=== PATIENT | male | born 1955 | race Caucasian/White ===

== ENCOUNTER 2020-06-24 11:07 | Inpatient (IN) | payer MEDICARE, OTHER ==
[2020-06-24] VITALS (18 sets, daily range): BP systolic 107–139; BP diastolic 81–118
[~2020-06-24] VITALS: Ht 182.9 cm; Wt 103.4 kg
[2020-06-24 12:06] LABS: BASOPHILS # (AUTO) 0.1 (0.0-0.1); BASOPHILS % 0.5 % (0.0-1.0); EOSINOPHILS % 0.1 % (0.0-6.0); HEMATOCRIT 41.4 % (38.2-49.6); HEMOGLOBIN 14.2 g/dL (14.0-18.0); LYMPHOCYTES # (AUTO) 1.4 (1.0-3.2); LYMPHOCYTES % 14.3 % (18.0-39.1); MEAN CORPUSCULAR HEMOGLOBIN 30.8 pg (28-32); MEAN CORPUSCULAR HGB CONC 34.3 g/dL (31-35); MEAN CORPUSCULAR VOLUME 89.8 fL (81-99); MONOCYTES # (AUTO) 0.6 (0.2-0.8); MONOCYTES % 5.7 % (4.4-11.3); NEUTROPHILS # (AUTO) 7.8 (2.1-6.9); NEUTROPHILS % 78.9 % (38.7-80.0); PLATELET COUNT 250 x10e3/uL (140-360); RED BLOOD COUNT 4.61 x10e6/uL (4.3-5.7); RED CELL DISTRIBUTION WIDTH 13.5 % (11.7-14.4)
[2020-06-24 12:23] LABS: ALANINE AMINOTRANSFERASE 16 IU/L (0-55); ALBUMIN 4.7 g/dL (3.5-5.0); ALBUMIN/GLOBULIN RATIO 1.7 (0.8-2.0); ALKALINE PHOSPHATASE 38 IU/L (40-150); ANION GAP 20.6 mmol/L (8-16); BLOOD UREA NITROGEN 58 mg/dL (7-26); BUN/CREATININE RATIO 49 (6-25); CALCIUM 10.1 mg/dL (8.4-10.2); CARBON DIOXIDE 17 mmol/L (22-29); CHLORIDE 108 mmol/L (98-107); CREATININE, SERUM 1.18 mg/dL (0.72-1.25); EST GLOMERULAR FILTRATION RATE > 60 ML/MIN (60-); GLUCOSE 137 mg/dL (74-118); POTASSIUM 4.6 mmol/L (3.5-5.1); SODIUM 141 mmol/L (136-145)
[2020-06-24] MEDS ORDERED: DILTIAZEM HCL 5 MG/ML 5 ML VIAL IV STA ×2 (12:44→13:11)
--- NOTE | 2020-06-24 12:45 | Emergency Department Note ---
History of Present Illnes History of Present Illness Chief Complaint: Respiratory History of Present Illness This is a 64 year old male arrives to the ED with complaints of shortness of breath and tachycardia. Patient states he feels like he can't speak full sentences or catch his breath and his heart is pounding out of his chest. Patient admits to history of A. fib with patient . Chief Complaint Comment X 2 DAYS SHORTNESS OF BREATH. "I FEEL LIKE I NEED OXYGEN". O2SAT 100%., COMPLETING SENTENCES WITHOUT DIFFICULTY. POOR APPETITE. HAVING BLACK DIARRHEA X 3 EPISODES. DENIES ANY N/V. ALSO DESCRIBES EPISODES OF A HOANG OF HEAT OVER UPPER BODY Historian: Patient Arrival Mode: Car Additional Treatment ETHYL BLENDER: NONE Executive Legal Secretary Required: No Onset (how long ago): day(s) Severity: mild Onset quality: gradual Duration (how long): day(s) Timing of current episode: constant Progression: worsening Past Medical/Family History Physician Review I have reviewed the patient's past medical and family history. Any updates have been documented here. Past Medical History Recent Fever: No Clinical Suspicion of Infectio: No New/Unexplained Change in Ment: No Past Medical History: None Past Surgical History: None Social History Physically hurt or threatened: No Review of Systems Review of Systems Constitutional: Reports no symptoms EENTM: Reports no symptoms Cardiovascular: Reports as per HPI, Reports palpitations Respiratory: Reports no symptoms Gastrointestinal: Reports no symptoms Genitourinary: Reports no symptoms Musculoskeletal: Reports no symptoms Integumentary: Reports no symptoms Neurological: Reports no symptoms Psychological: Reports no symptoms Endocrine: Reports no symptoms Hematological/Lymphatic: Reports no symptoms Physical Exam Related Data Allergies: Coded Allergies: No Known Allergies (Unverified , 06/24/20) Triage Vital Signs Vital Signs Date Time Temp Pulse Resp B/P (MAP) Pulse Ox O2 Delivery O2 Flow Rate FiO2 06/24/20 11:30 98.4 110 20 102/74 Vital signs reviewed: Yes Physical Exam CONSTITUTIONAL Constitutional: Present well-developed, Present well-nourished HENT HENT: Present normocephalic, Present atraumatic, Present oropharynx clear/moist, Present nose normal HENT L/R: Present left ext ear normal, Present right ext ear normal EYES Eyes: Reports PERRL, Reports conjunctivae normal NECK Neck: Present ROM normal PULMONARY Pulmonary: Present effort normal, Present breath sounds normal CARDIOVASCULAR Cardiovascular: Present irregular rhythm, Present capillary refill normal, Present tachycardia; Absent heart sounds normal, Absent normal rate GASTROINTESTINAL Abdominal: Present soft, Present nontender, Present bowel sounds normal GENITOURINARY Genitourinary: Present exam deferred SKIN Skin: Present warm, Present dry MUSCULOSKELETAL Musculoskeletal: Present ROM normal NEUROLOGICAL Neurological: Present alert, Present oriented x 3, Present no gross motor or sensory deficits PSYCHOLOGICAL Psychological: Present mood/affect normal, Present judgement normal Results Laboratory Result Diagram: 06/24/20 1156 06/24/20 1156 Laboratory Laboratory Tests Test 06/24/20 11:56 White Blood Count 9.82 x10e3/uL (4.8-10.8) Red Blood Count 4.61 x10e6/uL (4.3-5.7) Hemoglobin 14.2 g/dL (14.0-18.0) Hematocrit 41.4 % (38.2-49.6) Mean Corpuscular Volume 89.8 fL (81-99) Mean Corpuscular Hemoglobin 30.8 pg (28-32) Mean Corpuscular Hemoglobin Concent 34.3 g/dL (31-35) Red Cell Distribution Width 13.5 % (11.7-14.4) Platelet Count 250 x10e3/uL (140-360) Neutrophils (%) (Auto) 78.9 % (38.7-80.0) Lymphocytes (%) (Auto) 14.3 % (18.0-39.1) Monocytes (%) (Auto) 5.7 % (4.4-11.3) Eosinophils (%) (Auto) 0.1 % (0.0-6.0) Basophils (%) (Auto) 0.5 % (0.0-1.0) Neutrophils # (Auto) 7.8 (2.1-6.9) Lymphocytes # (Auto) 1.4 (1.0-3.2) Monocytes # (Auto) 0.6 (0.2-0.8) Eosinophils # (Auto) 0.0 (0.0-0.4) Basophils # (Auto) 0.1 (0.0-0.1) Absolute Immature Granulocyte (auto 0.05 x10e3/uL (0-0.1) Sodium Level 141 mmol/L (136-145) Potassium Level 4.6 mmol/L (3.5-5.1) Chloride Level 108 mmol/L (98-107) Carbon Dioxide Level 17 mmol/L (22-29) Anion Gap 20.6 mmol/L (8-16) Blood Urea Nitrogen 58 mg/dL (7-26) Creatinine 1.18 mg/dL (0.72-1.25) Estimat Glomerular Filtration Rate > 60 ML/MIN (60-) BUN/Creatinine Ratio 49 (6-25) Glucose Level 137 mg/dL (74-118) Calcium Level 10.1 mg/dL (8.4-10.2) Total Bilirubin 0.4 mg/dL (0.2-1.2) Aspartate Amino Transf (AST/SGOT) 17 IU/L (5-34) Alanine Aminotransferase (ALT/SGPT) 16 IU/L (0-55) Alkaline Phosphatase 38 IU/L (40-150) Total Protein 7.4 g/dL (6.5-8.1) Albumin 4.7 g/dL (3.5-5.0) Globulin 2.7 g/dL (2.3-3.5) Albumin/Globulin Ratio 1.7 (0.8-2.0) Lab results reviewed: Yes Imaging Imaging results reviewed: Yes Procedures 12 Lead ECG Interpretation ECG Interpretation : ECG: ECG 1 Prior ECG tracings: reviewed Rhythm: atrial fibrillation Ectopy: PVC's Rate: tachycardia QRS axis: left ST segments normal: Yes T waves normal: Yes Clinical Impression: abnormal ECG Critical Care Time Total Critical Care Time (min): 65 Critical care time exclusive o: separately billable procedures Critcal care necessary due to: cardiac failure, circulatory failure Assessment & Plan Medical Decision Making MDM 64-year-old male arrives to the ED with elevated heart rate. Patient with a history of atrial fibrillation, however, on no medications. In the ER patient noted to be in A. fib with rapid ventricular response. Patient given Cardizem pushes with minimal improvement noted, however, patient noted my hypotensive and required amiodarone drip. Cardizem drip added for b doni heart rate controlled. He should admitted to the ICU for closer monitoring. Dr. Vicente consulted At Dr. Palomares's request Assessment & Plan Final Impression: (1) Atrial fibrillation with rapid ventricular response Depart Disposition: ADMITTED Last Vital Signs Date Time Temp Pulse Resp B/P (MAP) Pulse Ox O2 Delivery O2 Flow Rate FiO2 06/24/20 11:30 98.4 110 20 102/74 NOAH ROBLERO DO Jun 24, 2020 12:45
--- NOTE | 2020-06-24 12:48 | Diagnostic Imaging Report ---
EXAMINATION: CHEST SINGLE (PORTABLE) INDICATION: Shortness of breath COMPARISON: None FINDINGS: LINES/TUBES:None LUNGS:The lungs are well-inflated. No focal consolidation or pulmonary edema. PLEURA:No pleural effusion or pneumothorax. MEDIASTINUM:The cardiomediastinal silhouette appears normal in size and shape. BONES/SOFT TISSUES:No acute osseous injury. ABDOMEN:No free air under the diaphragm. IMPRESSION: No focal pneumonia or pulmonary edema. Signed by: Tyrese Martinez MD on 06/24/2020 12:45 PM
[2020-06-24] MEDS ORDERED: AMIODARONE HCL 900 MG in DEXTROSE 5% 500ML 500 ML IV STA (13:40)
[2020-06-24] MEDS ORDERED: AMIODARONE HCL 150MG 100 ML IV STA (13:40)
[2020-06-24] MEDS ORDERED: AMIODARONE HCL 360MG 200 ML IV SCH ×2 (13:45→18:00)
[2020-06-24] MEDS ORDERED: ASPIRIN 81 MG CHEW TAB PO ONE (13:45)
[2020-06-24] MEDS ORDERED: NICARDIPINE 20MG/200ML PREMIX 200 ML IV STA (13:49)
[2020-06-24] MEDS ORDERED: AMIODARONE HCL 900 MG in DEXTROSE 5 % 500ML BOTTLE 500 ML IV SCH (14:00)
[2020-06-24] MEDS ORDERED: AMIODARONE HCL 150 MG in DEXTROSE 5% 100ML 100 ML IV SCH (14:00)
[2020-06-24 14:31] LABS: CREATINE KINASE MB 1.4 ng/mL (0-5.0)
[2020-06-24] MEDS: DILTIAZEM HCL 60 MG TAB PO SCH (18:11)
[2020-06-24] MEDS ORDERED: DILTIAZEM HCL 125 ML IV SCH (18:15)
--- NOTE | 2020-06-24 18:39 | NUR ---
1525: Patient transferred from ED, received from [facility]. Pt with reddened face, complaints of shortness of breath. Pt arrived with Amiodarone gtt at 1mg/min and Nicardipine at 2.5mg/hr y'd into R AC 20g PIV. Pt ambulated to bed from stretcher without complaints. Belongings placed bedside. 1530: Nicardipine gtt turned off. SBP <130. 1715: Admission history/physical/interventions done, pt denies family and personal history of afib or heart problems. Yes hyperlipidemia, takes atorvastatin at home. Orders reviewed. Attempted call to [facility] I[facility] in ED regarding order for nicardipine, no return call received. Bridgette, energy audit advisor notified about nicardipine gtt. Bridgette contacted the Dr. Cardenas for order clarification. 1745: Diltiazem gtt ordered. Pt HR >110, is reporting shortness of breath, "feeling hot" and generally unwell. Dr. Vicente consulted and spoken to on the telephone, ordered received.
[2020-06-24 19:41] LABS: CREATINE KINASE MB 1.4 ng/mL (0-5.0)
[2020-06-25] VITALS (16 sets, daily range): BP systolic 103–156; BP diastolic 61–101
[2020-06-25] MEDS ORDERED: DILTIAZEM HCL IV 5MG/ML 25 ML VIAL ONE (00:39)
[2020-06-25] MEDS ORDERED: SODIUM CHLORIDE 0.9% 100 ML ONE (00:40)
[2020-06-25] MEDS: DILTIAZEM HCL 60 MG TAB PO SCH ×2 (01:07→05:50)
[2020-06-25 04:43] LABS: BASOPHILS # (AUTO) 0.1 (0.0-0.1); BASOPHILS % 0.4 % (0.0-1.0); EOSINOPHILS % 0.1 % (0.0-6.0); HEMATOCRIT 33.7 % (38.2-49.6); HEMOGLOBIN 11.6 g/dL (14.0-18.0); LYMPHOCYTES # (AUTO) 1.8 (1.0-3.2); LYMPHOCYTES % 10.9 % (18.0-39.1); MEAN CORPUSCULAR HEMOGLOBIN 30.4 pg (28-32); MEAN CORPUSCULAR HGB CONC 34.4 g/dL (31-35); MEAN CORPUSCULAR VOLUME 88.2 fL (81-99); MONOCYTES # (AUTO) 1.3 (0.2-0.8); NEUTROPHILS # (AUTO) 13.2 (2.1-6.9); NEUTROPHILS % 80.1 % (38.7-80.0); PLATELET COUNT 205 x10e3/uL (140-360); RED BLOOD COUNT 3.82 x10e6/uL (4.3-5.7); RED CELL DISTRIBUTION WIDTH 13.7 % (11.7-14.4)
[2020-06-25 05:04] LABS: ALBUMIN 4.2 g/dL (3.5-5.0); ALBUMIN/GLOBULIN RATIO 1.8 (0.8-2.0); ANION GAP 22.8 mmol/L (8-16); CALCIUM 9.2 mg/dL (8.4-10.2); CREATININE, SERUM 1.56 mg/dL (0.72-1.25); POTASSIUM 3.8 mmol/L (3.5-5.1)
[2020-06-25 05:27] LABS: CREATINE KINASE MB 1.9 ng/mL (0-5.0)
[2020-06-25] MEDS ORDERED: METOPROLOL TARTRATE 50 MG TAB PO SCH (08:00)
--- NOTE | 2020-06-25 09:20 | Consultation ---
DATE OF CONSULTATION: 06/25/2020 REASON FOR CONSULTATION: Atrial fibrillation. CHIEF COMPLAINT: Palpitations and shortness of breath. HISTORY OF PRESENT ILLNESS: This is a 64-year-old male with history of atrial fibrillation and hyperlipidemia. The patient presents to [facility] ER with complaints of palpitation and shortness of breath for the past 4 days. However, in the ER, was noted in atrial fibrillation with RVR, was given Cardizem IV and Cardiology was consulted to evaluate the patient. The patient is seen in the ICU. Currently, he is in sinus rhythm on telemetry, on amiodarone drip, Cardizem drip has been weaned off. The patient reports for the past 4 days or so, has palpitations, heart fluttering with shortness of breath. However, prior to coming in, symptoms were worse, so therefore came into the ER for further evaluation. Of note, the patient reports that he was told he had irregular heartbeat over a year ago, however, has not been on any anticoagulation or rhythm/rate control therapy. The patient denies any chest pains or shortness of breath at this time and he feels at baseline. However, the patient does report he noticed black stools for the past 2 to 3 days and also has been experiencing hematuria for the past 2 days. Does report has had a headache for the past several months and has been taking BC powder 6 times a day for the past several months. PAST MEDICAL HISTORY: Atrial fibrillation and hyperlipidemia. SURGICAL HISTORY: The patient denies any surgeries. SOCIAL HISTORY: He is retired. He is . He denies any tobacco use. Social alcohol use. FAMILY HISTORY: Mother is alive at age 87, reported as healthy. Father is at age 70 post ATV accident. HOME MEDICATIONS: Include statin therapy, however, the patient is unknownm which medication he takes. ALLERGIES: NO KNOWN ALLERGIES. REVIEW OF SYSTEMS: GENERAL: Denies any weight changes, fatigue, weakness, fevers, chills, or night sweats. SKIN: No rashes or bruises. HEENT: Denies any nausea, vomiting, vision change, blurred vision, double vision, epistaxis, sore throat, earache, hoarseness, or stiff neck. CARDIAC: Positive for palpitations and dyspnea on exertion. Denies orthopnea, PND, or lower extremity edema. RESPIRATORY: Positive for shortness of breath. Denies any hemoptysis, any coughing, or wheezing. GI: Reports good appetite. Denies any nausea, vomiting, diarrhea, or constipation, however, positive for black tarry stools for past several days. URINARY: Positive for hematuria for the past 2 to 3 days. Positive for frequency and urgency. Denies any dysuria. VASCULAR: Denies any lower extremity edema or claudication. MUSCULOSKELETAL: Denies any muscle weakness. Positive for joint pains or back pain. NEUROLOGIC: Denies any numbness, tingling, tremors, weakness, or paralysis. HEMATOLOGY: No easy bruising or anemia. ENDOCRINE: Denies any heat or cold intolerance, polyuria, polydipsia, or polyphagia. PHYSICAL EXAMINATION: VITAL SIGNS: Height 72 inches, weight 228 pounds. Temperature 98.6, pulse 90, respiratory rate 23, blood pressure 126/61, and pulse ox 100% on room air. GENERAL: Appears stated age, reliable informant, well nourished individual, in no acute distress. SKIN: No rashes or bruises noted. HEENT: Normocephalic. Pupils are equal and reactive. Extraocular movements are intact. Trachea midline. No JVD. No carotid bruits noted. HEART: Regular rate and rhythm. PMI about 4th and 5th intercostal space. LUNGS: Bilateral breath sounds. Clear to auscultation. Good airway entry and exit. ABDOMEN: Soft, nontender, and nondistended. No organomegaly noted. MUSCULOSKELETAL: Good muscle strength throughout. No lower extremity edema noted. VASCULAR: +2 radial pulses bilaterally, +1 DP/PT pulses bilaterally. NEUROLOGIC: Cranial nerves 2 through 12 seem intact. LABORATORY DATA: White count 16, hemoglobin 11, on presentation hemoglobin 14, hematocrit 33, and platelets 205. Sodium 142, potassium 3.8, chloride 109, BUN 57, creatinine 1.5, and glucose 145. Troponin 0.01, next 0.02, next 0.02. TSH 2.4. COVID PCR pending. Chest x-ray showing no focal pneumonia or pulmonary edema. EKG unable to locate in chart, however, was noted to be in atrial fibrillation with RVR in the ER. ASSESSMENT: 1. Atrial fibrillation with rapid ventricular response. 2. Gastrointestinal bleed. 3. Hematuria. 4. Hyperlipidemia. 5. Obesity. PLAN: The patient presents to [facility] ER with complaints of shortness of breath and palpitations for the past several days. However, the patient is noted with history of irregular heartbeat, not on any type of therapy. He was started on amiodarone drip and Cardizem. The patient currently in sinus rhythm. Cardizem drip has been weaned off. We will transition amiodarone drip to p.o. However, the patient does report black tarry stools and hematuria, of course for now avoid any antiplatelet and OAC therapy. As mentioned before, the patient was taking BC powder up to 6 per day for the past several months. Continue telemonitoring. Echo to evaluate heart function and structure. Recommend GI evaluation. Discussed with staff. We will start PPI therapy. Monitor H and H. We will continue to follow the patient and adjust cardiac therapy as clinical course dictates. Thank you very much for this consult. SEEN AND EXAMINED AGREE WITH NOTE Dictated by Curt Pan NP Sunil Vicente MD [facility]/CHARITY /[id number] WILBER
[2020-06-25] MEDS: PANTOPRAZOLE 40 MG 10ML VIAL IV SCH ×2 (09:59→18:22)
[2020-06-25] MEDS: AMIODARONE HCL 200 MG TAB PO SCH ×2 (10:00→18:22)
[2020-06-25 12:16] LABS: HEMATOCRIT 31.8 % (38.2-49.6); HEMOGLOBIN 10.9 g/dL (14.0-18.0)
[2020-06-25] MEDS ORDERED: ACETAMIN/BUTALBITAL/CAFFEINE TAB PO PRN (13:30)
[2020-06-25] MEDS: METOPROLOL TARTRATE 50 MG TAB PO SCH (18:22)
--- NOTE | 2020-06-25 18:48 | Consultation ---
DATE OF CONSULTATION: 06/25/2020 Urology Consultation. REASON FOR CONSULTATION: Gross hematuria. HISTORY OF PRESENT ILLNESS: Kiran Alexis is a 64-year-old man who reports an intermittent gross hematuria for a while. He thinks he passed a kidney stone in the remote past and he has really never seen a urologist. He reports good urinary force of stream. The patient was admitted with atrial fibrillation with rapid ventricular response. The patient was noted to have gross hematuria. He also was noted to have dark stools. PAST MEDICAL/SURGICAL HISTORY: 1. Left knee scope. 2. Right foot surgery. 3. Oral surgeries. 4. Prior atrial fibrillation. 5. Hyperlipidemia. FAMILY HISTORY: Noncontributory to the active urological problem. The patient's mother is alive at age 87. Father is at 70 due to an ATV accident. SOCIAL HISTORY: The patient is a retired [employer]. He is . Denies smoking, ethanol, and drug abuse. CURRENT MEDICATIONS: Please refer to the MAR. ALLERGIES: PLEASE REFER TO THE MAR. REVIEW OF SYSTEMS: Discussed as above in history of present illness and past medical history, otherwise negative for all systems. PHYSICAL EXAMINATION: GENERAL: Healthy-appearing 64-year-old man walking around the room, in no apparent distress. He is currently afebrile. VITAL SIGNS: Currently stable. ABDOMEN: Soft, nondistended, nontender without costovertebral angle tenderness. Kidneys not palpable without hepatosplenomegaly. No obvious evidence of hernia. GENITOURINARY: Testes descended bilaterally. Testes are bilaterally slightly atrophic. The patient has normal circumcised male phallus with normal meatus without any lesion. Digital rectal examination is deferred at the present time. The remaining physical examination systems, please refer to the admission history and physical in the chart as well as well as ERT sheet. LABORATORY STUDIES: 1. The patient's white blood cell count was elevated at 16,490, hemoglobin is 10.9, platelets are normal at 205,000. The patient's creatinine yesterday was normal at 1.18 and today, it is abnormal at 1.56. There are no urologically significant radiographic studies available at present time. ASSESSMENT: 1. Gross hematuria. 2. History of urolithiasis. 3. Atrophic testes. 4. Leukocytosis. 5. Anemia. 6. Acute renal failure. PLAN: 1. I will order CT scan of the abdomen and pelvis and a stone protocol to evaluate it. 2. The patient will need cardiac clearance for surgery. 3. At some point in time, we need the patient will require cystoscopy and retrograde pyelograms. 4. Ongoing urological followup is a must, not just because of the hematuria, but also to perform metabolic stone workup should he have another stone. Thank you very much for involving us in care of your patient. We will be happy to follow along with you as well as an outpatient. Javier MD Charlene [place]/CHARITY /[id number] cc: Enmanuel Suazo
--- NOTE | 2020-06-25 19:00 | NUR ---
Bedside report received from Azar Concepcion RN. Pt received sitting up in bed AAOx4, ambulatory, reports no pain or discomfort at this time. Bed in lowest and locked position, call light in reach of the pt and call light/safety instruction completed at this time.
--- NOTE | 2020-06-25 19:31 | Diagnostic Imaging Report ---
EXAM: CT Abdomen and Pelvis WITHOUT contrast INDICATION: STONE PROTOCOL. HEMATURIA. PRIOR PASSED STONE. COMPARISON: None. TECHNIQUE: Abdomen and pelvis were scanned utilizing a multidetector helical scanner from the lung base to the pubic symphysis without administration of IV contrast. Absence of intravenous contrast decreases sensitivity for detection of focal lesions and vascular pathology. Coronal and sagittal reformations were obtained. Routine protocol was performed. IV CONTRAST: None ORAL CONTRAST: None COMPLICATIONS: None RADIATION DOSE: Total DLP: 819.53 mGy*cm Estimated effective dose: (DLP x 0.015 x size factor) mSv CTDIvol has been reviewed. It is below the limits set by the Radiation Protocol Committee (RPC). Dose modulation, iterative reconstruction, and/or weight based adjustment of the mA/kV was utilized to reduce the radiation dose to as low as reasonably achievable. FINDINGS: LINES and TUBES: None. LOWER THORAX: There is diffuse bronchial wall thickening at the lung bases which can be seen with airway inflammation such as bronchitis. HEPATOBILIARY: There is a 7 mm nodule in the right hepatic lobe, too small to characterize by CT but most likely represents a simple cyst. No biliary ductal dilation. GALLBLADDER: No radio-opaque stones or sludge. No wall thickening. SPLEEN: No splenomegaly. PANCREAS: No focal masses or ductal dilatation. ADRENALS: No adrenal nodules KIDNEYS/URETERS: No hydronephrosis. Left renal cyst. There is a 5 mm nonobstructive stone in the midpole of the left kidney. The right kidney is normal for technique. GI TRACT: No abnormal distention, wall thickening, or evidence of bowel obstruction. Appendix is normal. PELVIC ORGANS/BLADDER: The urinary bladder is decompressed, limiting its optimal assessment. However, no gross abnormality. Pelvic organs are otherwise within normal limits. LYMPH NODES: No lymphadenopathy. VESSELS: Unremarkable. PERITONEUM / RETROPERITONEUM: No free air or fluid. BONES: There are degenerative changes in the spine. There is transitional lumbosacral anatomy with lumbarization of the S1 vertebrae. There is bilateral L5 pars defect with grade 1 anterolisthesis of L5 on S1. SOFT TISSUES: Unremarkable. IMPRESSION: 1. Nonobstructive left nephrolithiasis. No evidence of obstructive renal or ureteral stones bilaterally. 2. Diffuse bronchial wall thickening at the lung bases which can be seen with airway inflammation such as bronchitis. Signed by: Osmin Martinez MD on 06/25/2020 7:28 PM
--- NOTE | 2020-06-25 22:23 | NUR ---
Pt has disconnected himself from telemetry multiple times. 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 Pt stated that being connected is keeping him from sleeping. I moved the small monitor to his bedside table (closer to the pt and decreasing cord tension) and explained that this will give him a slight increase in turning mobility while he sleeps. He then allowed me to reconnect him to the monitor on his bedside table.
--- NOTE | 2020-06-26 03:26 | NUR ---
Pt removed his broach trouble shooter at this time. Reinforced it's importance and pt allowed me to place it back on him.
--- NOTE | 2020-06-26 04:33 | NUR ---
Lab present and collecting morning blood lab specimens.
[2020-06-26 04:43] LABS: BASOPHILS # (AUTO) 0.1 (0.0-0.1); BASOPHILS % 0.6 % (0.0-1.0); EOSINOPHILS # (AUTO) 0.4 (0.0-0.4); EOSINOPHILS % 3.8 % (0.0-6.0); HEMATOCRIT 31.9 % (38.2-49.6); HEMOGLOBIN 10.9 g/dL (14.0-18.0); LYMPHOCYTES # (AUTO) 2.2 (1.0-3.2); LYMPHOCYTES % 19.8 % (18.0-39.1); MEAN CORPUSCULAR HEMOGLOBIN 31.7 pg (28-32); MEAN CORPUSCULAR HGB CONC 34.2 g/dL (31-35); MEAN CORPUSCULAR VOLUME 92.7 fL (81-99); MONOCYTES # (AUTO) 1.3 (0.2-0.8); MONOCYTES % 11.5 % (4.4-11.3); PLATELET COUNT 154 x10e3/uL (140-360); RED BLOOD COUNT 3.44 x10e6/uL (4.3-5.7); RED CELL DISTRIBUTION WIDTH 14.1 % (11.7-14.4)
[2020-06-26 04:55] LABS: PROTHROMBIN TIME 13.7 seconds (11.9-14.5)
[2020-06-26 04:56] LABS: PARTIAL THROMBOPLASTIN TIME 26.3 seconds (23.8-35.5)
--- NOTE | 2020-06-26 04:56 | NUR ---
Dr. Talya Palomares present and assessing the pt.
--- NOTE | 2020-06-26 05:13 | NUR ---
New orders received from to make the pt NPO and obtain consent for EGD for this morning around 0900.
[2020-06-26 08:00] VITALS: BP 137/98
[2020-06-26 08:48] LABS: ANION GAP 16.9 mmol/L (8-16); BLOOD UREA NITROGEN 33 mg/dL (7-26); BUN/CREATININE RATIO 32 (6-25); CALCIUM 8.4 mg/dL (8.4-10.2); CARBON DIOXIDE 19 mmol/L (22-29); CHLORIDE 108 mmol/L (98-107); CREATININE, SERUM 1.03 mg/dL (0.72-1.25); EST GLOMERULAR FILTRATION RATE > 60 ML/MIN (60-); GLUCOSE 92 mg/dL (74-118); POTASSIUM 3.9 mmol/L (3.5-5.1); SODIUM 140 mmol/L (136-145)
[2020-06-26 09:00] VITALS: BP 137/98
[2020-06-26] MEDS: PANTOPRAZOLE 40 MG 10ML VIAL IV SCH (09:00)
[2020-06-26] MEDS: AMIODARONE HCL 200 MG TAB PO SCH (09:00)
[2020-06-26] MEDS: METOPROLOL TARTRATE 50 MG TAB PO SCH (09:00)
--- NOTE | 2020-06-26 10:51 | Operative Report ---
DATE OF PROCEDURE: 06/26/2020 SURGEON: Jose Palomares MD PROCEDURE: Esophagogastroduodenoscopy with biopsies. INDICATIONS FOR EGD: Anemia, melena. MEDICATIONS: The patient was done under MAC, please see anesthesiologist's note. PROCEDURE IN DETAIL: With the patient in left lateral decubitus position, a flexible fiberoptic Olympus gastroscope was introduced into the esophagus under direct visualization without any difficulty. There was some patchy erythema noted in distal esophagus. The scope was then advanced with ease into the stomach traversing a small sliding hiatal hernia. There was a serpiginous ulcer noted in the hiatal hernia sac without active bleeding. The mucosa overlying the antrum and the body revealed some patchy intense erythema and low-grade edema, and biopsies were obtained, sent to stain for H pylori. Pylorus was of normal contour and shape, it was intubated with ease and the scope was advanced all the way to the second portion of the duodenum. A ring or a web was noted in the proximal second portion of the duodenum and biopsies were obtained. The duodenal bulb grossly appeared to be within normal limits. The scope was then withdrawn back into the stomach and retroflexed and mucosa around the fundus and the cardia appeared to be within normal limits. The scope was then straightened out, it was subsequently withdrawn. The patient tolerated the procedure well. IMPRESSION: 1. Distal esophagitis, mild. 2. Small sliding hiatal hernia. Serpiginous ulcer in hiatal hernia sac without active bleeding or stigmata of recent hemorrhage. 3. Gastritis, biopsied, biopsies sent to stain for H pylori. 4. Ring/webbed proximal second portion of duodenum, biopsied. PLAN: Follow up histology. Continue current therapy. Initiate full liquid diet. Jose Palomares MD [facility] [place]/[facility] /[id number] cc: MD Sunil Cid MD
[2020-06-26 11:03] VITALS: BP 129/73
[2020-06-26] MEDS ORDERED: ATORVASTATIN CA40 MG PO (12:11)
[2020-06-26] MEDS ORDERED: PROPOFOL IV EMULSION 10 MG/ML 20 ML VIAL ONE (12:43)
[2020-06-26] MEDS ORDERED: LIDOCAINE HCL 2% LOCAL INJ 5 ML SDV VIAL INJ ONE (12:43)
--- NOTE | 2020-06-26 12:51 | Discharge Summary ---
ADMITTING DIAGNOSES: 1. Atrial fibrillation with rapid ventricular rate. 2. Upper gastrointestinal bleeding, likely NSAID induced gastritis. DISCHARGE DIAGNOSES: 1. Atrial fibrillation with rapid ventricular rate, resolved. 2. Status post EGD. 3. Endoscopically proven hiatal hernia, containing serpiginous ulcer. 4. Acute anemia secondary to upper gastrointestinal bleeding, stable. HOSPITAL COURSE: This is a 64-year-old white man, who was initially admitted to [facility] with diagnosis of atrial fibrillation with rapid ventricular rate. The patient stated that prior to admission, he was taking up to six packets of BC Powder a day because of chronic headaches. The patient stated he was drinking alcohol in the form beer, usually 2-3 bottles a day with each bottle being 12 ounces of volume. The patient's hemoglobin on admission was 14.2 g/dL but during this hospitalization, he had dark tarry stool. Hemoglobin got as low as 10.9 g/dL but remained stabled at that level. The patient was seen by Gastroenterology. Dr. Jose Palomares performed EGD. The upper endoscopy revealed a small sliding hiatal hernia with a serpiginous ulcer, actually located in the hiatal hernia. The EGD did not do not reveal any active bleeding. The patient was also seen by theology professor, namely Dr. Sunil Vicente because of atrial fibrillation with rapid ventricular rate. The patient was started on oral amiodarone 400 mg twice a day as well as oral metoprolol tartrate 50 mg twice a day, which he tolerated quite well. The patient's hospitalization was unremarkable. The preliminary report on the 2D echocardiogram revealed a preserved left ventricular ejection fraction 60% to 65%. The patient's condition on discharge was stable. On discharge, he was not experiencing any chest pain, palpitations or lightheadedness. DISCHARGE MEDICATIONS: 1. Pantoprazole 40 mg twice a day for eight weeks. 2. Atorvastatin 40 mg at bedtime. 3. Metoprolol succinate 50 mg daily. 4. Amiodarone 200 mg b.i.d. FOLLOWUP INSTRUCTIONS: The patient instructed to follow up with Sunil Vicente within the next 7-10 days. The patient instructed to follow up with his primary care physician, namely Dr. Enmanuel Suazo within 2 weeks. Absolute alcohol abstinence was highly recommend with the patient. The patient was also told to avoid aspirin or aspirin-containing products such as BC powder. Moreover, he was told to avoid all NSAIDs because of his endoscopically proven serpiginous ulcer located in his hiatal hernia. MD RYNE Adams/CHARITY /[id number] cc: MD Enmanuel Eden
[2020-06-26] MEDS ORDERED: FIORICET 50-301 EACH PO (12:57)
[2020-06-26] MEDS ORDERED: METOPROLOL SUCC50 MG PO (12:57)
[2020-06-26] MEDS ORDERED: AMIODARONE HCL200 MG PO (12:59)
[2020-06-26] MEDS ORDERED: PANTOPRAZOLE SO40 MG PO (13:01)
== END 2020-06-26 13:34 | disposition home or self-care (01) | DRG 309 ==
LOC: ER 11:59 → ERHOLD 13:49 → ICU 16:03
PROC: 0DB78ZX Excision of Stomach, Pylorus, Via Natural or Artificial Opening Endoscopic, Diagnostic (ICD-10-PCS; 2020-06-26)
PROC: 0DB98ZX Excision of Duodenum, Via Natural or Artificial Opening Endoscopic, Diagnostic (ICD-10-PCS; principal; 2020-06-26 08:30)
DX: I48.91 Unspecified atrial fibrillation (principal); D62 Acute posthemorrhagic anemia; K92.2 Gastrointestinal hemorrhage, unspecified; N17.9 Acute kidney failure, unspecified; K44.9 Diaphragmatic hernia without obstruction or gangrene; R51 Headache; R31.9 Hematuria, unspecified; N20.0 Calculus of kidney; N28.1 Cyst of kidney, acquired; E66.9 Obesity, unspecified; Z68.30 Body mass index [BMI] 30.0-30.9, adult; R31.0 Gross hematuria; E78.5 Hyperlipidemia, unspecified; N50.0 Atrophy of testis; D64.9 Anemia, unspecified; Z11.59 Encounter for screening for other viral diseases
CPT/HCPCS: 36415; 43239; 71045; 74176; 80048; 80053; 82550; 82553; 84443; 84484; 85014; 85018; 85025; 85610; 85730; 88305; 88312; 93005; 93306; 99284; J2001; J7050; U0002

== ENCOUNTER → 2020-08-11 | Day surgery (SDC) | payer MEDICARE, OTHER ==
[2020-08-06 13:09] LABS: BASOPHILS # (AUTO) 0.1 (0.0-0.1); BASOPHILS % 1.2 % (0.0-1.0); EOSINOPHILS # (AUTO) 0.5 (0.0-0.4); EOSINOPHILS % 8.1 % (0.0-6.0); HEMATOCRIT 43.6 % (38.2-49.6); LYMPHOCYTES # (AUTO) 1.9 (1.0-3.2); LYMPHOCYTES % 32.7 % (18.0-39.1); MEAN CORPUSCULAR HEMOGLOBIN 28.8 pg (28-32); MEAN CORPUSCULAR HGB CONC 32.1 g/dL (31-35); MEAN CORPUSCULAR VOLUME 89.7 fL (81-99); MONOCYTES # (AUTO) 0.6 (0.2-0.8); MONOCYTES % 10.3 % (4.4-11.3); NEUTROPHILS # (AUTO) 2.8 (2.1-6.9); NEUTROPHILS % 47.5 % (38.7-80.0); PLATELET COUNT 314 x10e3/uL (140-360); RED BLOOD COUNT 4.86 x10e6/uL (4.3-5.7); RED CELL DISTRIBUTION WIDTH 13.7 % (11.7-14.4)
[2020-08-06 13:27] LABS: BLOOD UREA NITROGEN 19 mg/dL (7-26); BUN/CREATININE RATIO 17 (6-25); CALCIUM 9.3 mg/dL (8.4-10.2); CARBON DIOXIDE 22 mmol/L (22-29); CHLORIDE 107 mmol/L (98-107); EST GLOMERULAR FILTRATION RATE > 60 ML/MIN (60-); GLUCOSE 108 mg/dL (74-118); SODIUM 140 mmol/L (136-145)
[2020-08-06 14:57] LABS: ALANINE AMINOTRANSFERASE 22 IU/L (0-55); ALBUMIN 4.4 g/dL (3.5-5.0); ALBUMIN/GLOBULIN RATIO 1.3 (0.8-2.0); ALKALINE PHOSPHATASE 62 IU/L (40-150); CHOL/HDL RATIO 3.9 (3.9-4.7); CHOLESTEROL 231 MD/DL (0-199); HDL CHOLESTEROL 60 MG/DL (40-60); LDL CHOLESTEROL 130 MG/DL (60-130); TRIGLYCERIDES 206 MG/DL (0-149)
[2020-08-06 15:17] LABS: THYROID STIMULATING HORMONE 3.471 uIU/mL (0.350-4.940)
[~2020-08-11] MED LIST: AMIODARONE HCL200 MG PO; ATORVASTATIN CA40 MG PO; B&O 60MG R/S 60 MG SUPP PR ONE; CEFTRIAXONE SOD 1 GM/NS 50 ML 50 ML IV ONE; DEXAMETHASONE SOD PHOS INJ 4 MG/ML VIAL ONE; EPHEDRINE SULFATE INJ 50 MG/ML VIAL ONE; FIORICET 50-301 EACH PO; IOPAMIDOL 300MG/ML 50ML INFUS..BTL IV ONE; LIDOCAINE HCL 2% LOCAL INJ 5 ML SDV VIAL INJ ONE; METOPROLOL SUCC50 MG PO; MIDAZOLAM HCL 2 MG/2 ML VIAL ONE; ONDANSETRON HCL INJ 2MG/ML 2ML 2 MG/ML VIAL ONE; PANTOPRAZOLE SO40 MG PO; PROPOFOL IV EMULSION 10 MG/ML 20 ML VIAL ONE; SEVOFLURANE INHAL SOLN 250 ML PEN BTL ONE
[2020-08-11 09:45] VITALS: BP 144/79
== END | disposition home or self-care (01) ==
LOC: OR 06:01
PROVIDERS: ATTEND Urology
DX: N20.0 Calculus of kidney (principal); D41.4 Neoplasm of uncertain behavior of bladder; N35.912 Unspecified bulbous urethral stricture, male; N40.0 Benign prostatic hyperplasia without lower urinary tract symptoms; N32.89 Other specified disorders of bladder; G43.909 Migraine, unspecified, not intractable, without status migrainosus; I10 Essential (primary) hypertension; I48.91 Unspecified atrial fibrillation; Z01.812 Encounter for preprocedural laboratory examination; Z01.818 Encounter for other preprocedural examination; Z11.59 Encounter for screening for other viral diseases; Z87.11 Personal history of peptic ulcer disease
CPT/HCPCS: 36415; 50590; 52234; 74018; 80053; 80061; 84443; 85025; 88305; C1758; C1769; J0696; J1100; J2001; J2250; J2405; J2704; Q9967; U0002; 80048; 88304

== ENCOUNTER → 2020-08-19 | Outpatient (CLI) | payer MEDICARE, OTHER ==
[~2020-08-19] MED LIST changes: -B&O 60MG R/S 60 MG SUPP PR ONE; -CEFTRIAXONE SOD 1 GM/NS 50 ML 50 ML IV ONE; -DEXAMETHASONE SOD PHOS INJ 4 MG/ML VIAL ONE; -EPHEDRINE SULFATE INJ 50 MG/ML VIAL ONE; -IOPAMIDOL 300MG/ML 50ML INFUS..BTL IV ONE; -LIDOCAINE HCL 2% LOCAL INJ 5 ML SDV VIAL INJ ONE; -MIDAZOLAM HCL 2 MG/2 ML VIAL ONE; -ONDANSETRON HCL INJ 2MG/ML 2ML 2 MG/ML VIAL ONE; -PROPOFOL IV EMULSION 10 MG/ML 20 ML VIAL ONE; -SEVOFLURANE INHAL SOLN 250 ML PEN BTL ONE
== END ==
LOC: MRI 12:32
PROVIDERS: ATTEND Student in an Organized Health Care Education/Training Program
DX: G44.84 Primary exertional headache (principal); T39.395A Adverse effect of other nonsteroidal anti-inflammatory drugs [NSAID], initial encounter
CPT/HCPCS: 70544; 70551

== ENCOUNTER → 2020-11-19 | Day surgery (SDC) | payer MEDICARE, OTHER ==
[2020-11-16 09:37] LABS: BASOPHILS # (AUTO) 0.1 (0.0-0.1); BASOPHILS % 1.1 % (0.0-1.0); EOSINOPHILS # (AUTO) 0.4 (0.0-0.4); EOSINOPHILS % 5.4 % (0.0-6.0); HEMATOCRIT 45.2 % (38.2-49.6); LYMPHOCYTES # (AUTO) 1.8 (1.0-3.2); LYMPHOCYTES % 27.6 % (18.0-39.1); MEAN CORPUSCULAR HEMOGLOBIN 27.8 pg (28-32); MEAN CORPUSCULAR HGB CONC 33.2 g/dL (31-35); MEAN CORPUSCULAR VOLUME 83.7 fL (81-99); MONOCYTES # (AUTO) 0.8 (0.2-0.8); MONOCYTES % 12.7 % (4.4-11.3); NEUTROPHILS # (AUTO) 3.4 (2.1-6.9); NEUTROPHILS % 52.9 % (38.7-80.0); PLATELET COUNT 216 x10e3/uL (140-360); RED CELL DISTRIBUTION WIDTH 17.2 % (11.7-14.4)
[2020-11-16 10:07] LABS: ANION GAP 16.1 mmol/L (8-16); BLOOD UREA NITROGEN 16 mg/dL (7-26); BUN/CREATININE RATIO 14 (6-25); CALCIUM 9.2 mg/dL (8.4-10.2); CARBON DIOXIDE 25 mmol/L (22-29); CHLORIDE 102 mmol/L (98-107); CREATININE, SERUM 1.14 mg/dL (0.72-1.25); EST GLOMERULAR FILTRATION RATE > 60 ML/MIN (60-); GLUCOSE 103 mg/dL (74-118); POTASSIUM 4.1 mmol/L (3.5-5.1); SODIUM 139 mmol/L (136-145)
[~2020-11-19] MED LIST changes: +ACETAMINOPHEN/CODEINE 300MG - 30MG TAB ONE; +AMITRIPTYLINE H25 MG PO; +B&O 60MG R/S 60 MG SUPP PR ONE; +CEFTRIAXONE SOD 1 GM/NS 50 ML 50 ML IV ONE; +FENTANYL CITRATE/PF 100MCG/2 ML INJ ONE; +FLOMAX0.4 MG PO; +IOPAMIDOL 300MG/ML 50ML INFUS..BTL IV ONE; +SUMATRIPTAN SU100 MG PO
[2020-11-19 11:30] VITALS: BP 145/99
== END | disposition home or self-care (01) ==
LOC: OR 08:55
PROVIDERS: ATTEND Urology
DX: C67.9 Malignant neoplasm of bladder, unspecified (principal); N35.912 Unspecified bulbous urethral stricture, male; N40.0 Benign prostatic hyperplasia without lower urinary tract symptoms; N32.89 Other specified disorders of bladder; I10 Essential (primary) hypertension; I25.10 Atherosclerotic heart disease of native coronary artery without angina pectoris; I48.91 Unspecified atrial fibrillation; E78.5 Hyperlipidemia, unspecified; Z01.810 Encounter for preprocedural cardiovascular examination; Z01.812 Encounter for preprocedural laboratory examination; Z20.822 Contact with and (suspected) exposure to COVID-19
CPT/HCPCS: 36415; 52281; 74420; 80048; 85025; 93005; C1758; J0696; J3010; Q9967; U0002